=== PATIENT | male | born 1965 | race Caucasian/White ===

== ENCOUNTER 2020-02-18 17:10 | Emergency (ER) | payer SELFPAY ==
[2020-02-18] MEDS ORDERED: fentaNYL 100 MCG/2 ML SDV IVPUSH ONE (17:37)
--- NOTE | 2020-02-18 17:53 | EDM.PDOC ---
<Amina Valdes M - Last Filed: 02/18/20 17:48> ED HPI GENERAL MEDICAL PROBLEM - General Chief Complaint: Abdominal Pain Stated Complaint: ABD PAIN Time Seen by Provider: 02/18/20 17:48 Source of Information: Reports: Patient, RN, RN Notes Reviewed History Limitations: Reports: No Limitations - History of Present Illness INITIAL COMMENTS - FREE TEXT/NARRATIVE: Pt presents with abd pain in all 4 quadrants. Does not radiate. No OTC for pain. Pt indicates he has been drinking prune juice since last night and did have a BM this afternoon. Denies SOB, fever, chills, night sweats, or exposure to illness. Does c/o nausea intermittently. Onset: Gradual Onset Date: 02/14/20 Duration: Getting Worse Quality: Reports: Pressure Severity: Moderate Middle Abdomen Pain Score (Numeric/FACES): 5 - Related Data Allergies Allergy/AdvReac Type Severity Reaction Status Date / Time No Known Allergies Allergy Verified 02/18/20 17:28 Home Meds: Home Meds NK [No Known Home Meds] 02/18/20 [History] Past Medical History - Past Health History Medical/Surgical History: Denies Medical/Surgical History - Infectious Disease History Infectious Disease History: Reports: Chicken Pox Social & Family History - Tobacco Use Tobacco Use Status *Q: Never Tobacco User - Caffeine Use Caffeine Use: Reports: Coffee - Recreational Drug Use Recreational Drug Use: No ED ROS GENERAL - Review of Systems Review Of Systems: See Below Constitutional: Reports: No Symptoms HEENT: Reports: No Symptoms Respiratory: Reports: Cough Cardiovascular: Reports: No Symptoms Endocrine: Reports: No Symptoms GI/Abdominal: Reports: Abdominal Pain, Distension, Nausea : Reports: No Symptoms Musculoskeletal: Reports: No Symptoms Skin: Reports: No Symptoms Neurological: Reports: No Symptoms Psychiatric: Reports: No Symptoms Hematologic/Lymphatic: Reports: No Symptoms Immunologic: Reports: No Symptoms ED EXAM, GI/ABD - Physical Exam Exam: See Below Exam Limited By: No Limitations General Appearance: Alert, WD/WN, Moderate Distress Head: Normocephalic Neck: Normal Inspection, Full Range of Motion Respiratory/Chest: No Respiratory Distress, Lungs Clear Cardiovascular: Regular Rate, Rhythm GI/Abdominal Exam: Distended, Rigid, Other (Hyperactive BS) (Male) Exam: Deferred Rectal (Males) Exam: Deferred Neurological: Alert, Oriented, CN II-XII Intact Psychiatric: Normal Affect, Normal Mood Skin Exam: Warm, Dry, Intact Departure - Departure Disposition: DC/Tfer to Other 70 Clinical Impression: Abdominal pain Qualifiers: Abdominal location: generalized Qualified Code(s): R10.84 - Generalized abdominal pain Pancreatitis Qualifiers: Chronicity: acute Pancreatitis type: unspecified pancreatitis type Acute pancr eatitis complication: no infection or necrosis Qualified Code(s): K85.90 - Acute pancreatitis without necrosis or infection, unspecified - Discharge Information Referrals: PCP,None [Primary Care Provider] - Forms: ED Department Discharge Care Plan Goals: Patient will be transferred to [facility] for inpatient evaluation and management of acute pancreatitis or duodenitis. Sepsis Event Note (ED) - Evaluation Sepsis Screening Result: No Definite Risk <Beltran Lopez - Last Filed: 02/19/20 08:48> Course - Vital Signs Last Recorded V/S: Last Vital Signs Temp 97.8 F 02/18/20 17:32 Pulse 94 02/18/20 19:15 Resp 16 02/18/20 17:32 BP 152/86 H 02/18/20 19:15 Pulse Ox 99 02/18/20 17:32 - Orders/Labs/Meds Labs: Laboratory Tests 02/18/20 02/18/20 Range/Units 17:54 17:54 WBC 17.2 H (4.5-11.0) K/uL RBC 5.87 (4.30-5.90) M/uL Hgb 16.7 H (12.0-15.0) g/dL Hct 49.6 (40.0-54.0) % MCV 85 (80-98) fL MCH 28 (27-31) pg MCHC 34 (32-36) % Plt Count 213 (150-400) K/uL Neut % (Auto) 76 H (36-66) % Lymph % (Auto) 9 L (24-44) % [place] % (Auto) 15 H (2-6) % Eos % (Auto) 1 L (2-4) % Baso % (Auto) 0 (0-1) % Sodium 136 L (140-148) mmol/L Potassium 4.4 (3.6-5.2) mmol/L Chloride 100 (100-108) mmol/L Carbon Dioxide 29 (21-32) mmol/L Anion Gap 11.4 (5.0-14.0) mmol/L BUN 9 (7-18) mg/dL Creatinine 1.2 (0.8-1.3) mg/dL Est Cr Clr Drug Dosing 64.98 mL/min Estimated GFR (MDRD) > 60 (>60) Glucose 114 H (74-106) mg/dL Calcium 9.5 (8.5-10.1) mg/dL Total Bilirubin 1.5 H (0.2-1.0) mg/dL AST 25 (15-37) U/L ALT 50 (12-78) U/L Alkaline Phosphatase 75 (46-116) U/L Total Protein 8.3 H (6.4-8.2) g/dL Albumin 3.9 (3.4-5.0) g/dL Globulin 4.4 H (2.3-3.5) g/dL Albumin/Globulin Ratio 0.9 L (1.2-2.2) Lipase 573 H (73-393) U/L Meds: Medications Discontinued Medications Generic Name Dose Route Start Last Admin Trade Name Freq PRN Reason Stop Dose Admin Fentanyl 50 mcg 02/18/20 17:37 02/18/20 17:51 Sublimaze IVPUSH 02/18/20 17:38 50 mcg ONETIME ONE Administration Hydromorphone HCl 1 mg 02/18/20 19:04 02/18/20 19:14 Dilaudid IVPUSH 02/18/20 19:05 1 mg ONETIME ONE Administration Sodium Chloride 1,000 mls @ 500 mls/hr 02/18/20 18:00 02/18/20 17:57 Normal Saline IV 500 mls/hr ASDIRECTED WILLOW Administration Pantoprazole Sodium 40 mg 02/18/20 18:49 02/18/20 19:13 Protonix Iv IVPUSH 02/18/20 18:50 40 mg ONETIME ONE Administration - Re-Assessments/Exams Free Text/Narrative Re-Assessment/Exam: 02/18/20 18:51 Impression: Inflammatory changes in the retroperitoneum surrounding the duodenum and inferior pancreatic head. No abscess or bowel obstruction. Differential diagnosis includes pancreatitis, duodenitis or sequela of duodenal ulcer disease. EGD may be helpful. No gallstones or biliary obstruction. Mild hepatic steatosis. Air-fluid levels within loops of colon extending from the cecum to the splenic flexure may represent ileus but recommend follow-up. CT report as above. Patient responded fairly well to IV fentanyl. He will be given 40 mg of IV Protonix and pain control until transfer can be arranged. He was accepted by [facility] in [place]. Departure - Departure Time of Disposition: 19:43 Attestation - Student - Attestation Statement Attestation Statement: I personally performed or re-performed the physical examination and medical decision making. I have verified all student documentation or findings, inclu ding history, physical exam and/or medical decision making.
[2020-02-18] MEDS ORDERED: Sodium Chloride 0.9% 1,000 ML IV SCH (18:00)
--- NOTE | 2020-02-18 18:46 | CRLCT ---
Indication: Abdominal pain Technique: Noncontrast CT abdomen and pelvis Please note that all CT scans at this facility use dose modulation, iterative reconstruction, and/or weight-based dosing when appropriate to reduce radiation dose to as low as reasonably achievable. Comparison: No comparison Findings: Inflammatory stranding is present within the retroperitoneum surrounding the inferior aspect of the uncinate process of the pancreas and 2nd/3rd portions of the duodenum with associated duodenal wall thickening. No obstruction or free air. No abscess or drainable fluid collection. The pancreatic duct is not distended. Adrenal glands, kidneys and ureters are normal. Normal spleen and gallbladder. Mild fatty infiltration of the liver. A few air-fluid levels are present within loops of colon. Sigmoid diverticulosis. Normal appendix. Prostatic cyst anteriorly. Mild enlargement of the prostate with mass effect upon the bladder. No bladder calcification. No fracture. Impression: Inflammatory changes in the retroperitoneum surrounding the duodenum and inferior pancreatic head. No abscess or bowel obstruction. Differential diagnosis includes pancreatitis, duodenitis or sequela of duodenal ulcer disease. EGD may be helpful. No gallstones or biliary obstruction. Mild hepatic steatosis. Air-fluid levels within loops of colon extending from the cecum to the splenic flexure may represent ileus but recommend follow-up. Please note that all CT scans at this facility use dose modulation, iterative reconstruction, and/or weight-based dosing when appropriate to reduce radiation dose to as low as reasonably achievable. Dictated by New Kemp MD @ Feb 18 2020 6:39PM Signed by Dr. New Kemp @ Feb 18 2020 6:44PM
[2020-02-18] MEDS ORDERED: Pantoprazole 40 MG Vial IVPUSH ONE (18:49)
[2020-02-18] MEDS ORDERED: HYDROmorphone 1 MG/ML Syringe IVPUSH ONE (19:04)
== END 2020-02-18 20:00 | disposition other institution (70) ==
LOC: JP.ED 17:10
DX: K85.90 Acute pancreatitis without necrosis or infection, unspecified (principal)
CPT/HCPCS: 36415; 74176; 80053; 83690; 85025; 96374; 96375; 99285; C9113; J1170; J3010; J7030